=== PATIENT | male | born 1975 | race Caucasian/White ===

== ENCOUNTER 2018-03-22 22:52 | Emergency (ER) ==
[2018-03-22 23:06] VITALS: BP 162/89; TEMP 98.1; BMI 35.9
[2018-03-22] MEDS ORDERED: TORADOL IM STA (23:29)
[2018-03-22] MEDS ORDERED: AUGMENTIN 875-125 MG TAB PO STA (23:29)
--- NOTE | 2018-03-22 23:31 | ED.PDOC ---
General ED Provider: Dr. JESICA GALLARDO Chief Complaint: Tooth Problem Stated Complaint: Left lower and upper jaw pain and pressure Time Seen by Physician: 23:29 Mode of Arrival: Walk-In Information Source: Patient Primary Care Provider: DAMIAN MONDRAGON Nursing and Triage Documentation Reviewed and Agree: Yes Does patient meet sepsis criteria?: No If yes, has appropriate treatment been initiated?: No System Inflammatory Response Syndrome: Not Applicable Sepsis Protocol: For patient's 13 years and over: Temp is 96.8 and below OR 101 and greater Pulse >90 BPM Resp >20/minute Acutely Altered Mental Status Are patient's symptoms suggestive of a new infection, such as: -Pneumonia -Skin, Soft Tissue -Endocarditis -UTI -Bone, Joint Infection -Implantable Device -Acute Abdominal Infection -Wound Infection -Meningitis -Blood Stream Catheter Infection -Unknown EENT Complaint Exam - Dental/Oral Complaint/Exam Symptoms Are: Still present Timing: Constant Initial Severity: Moderate Current Severity: Moderate Character: Reports: Dull, Aching Aggravating: Reports: Heat, Cold, Chewing Alleviating: Reports: None Associated Signs and Symptoms: Reports: Swelling, Foul odor. Denies: Discharge , Fever, Foul taste in mouth Related History: Reports: Similar episode Cardiac Risk Factors: Reports: None Dental/Oral Surgical History: Reports: None Tooth Findings: Present: Percussion tenderness, Gross decay, Gross caries Cervical Lymphadenopathy Present: No Facial Swelling Present: No Bleeding Present: No Septal Hematoma: No Foreign Body Present: No Dysphagia Present: No Drooling Present: No Asymmetrical Tonsillar Swelling Present: No Uvula Midline: No Trini-tonsillar Fluctuence: No Trismus Present: No Palatal Petechiae Present: No Scarlatinaform Rash Present: No Teeth Picture: 1 - caries 2 - caries,tender Differential Diagnoses: Dental Abcess, Dental Caries Review of Systems - Review Of Systems Constitutional: Reports: No symptoms Eyes: Reports: No symptoms Ears, Nose, Mouth, Throat: Reports: Mouth pain, Mouth swelling Respiratory: Reports: No symptoms Cardiac: Reports: No symptoms GI: Reports: No symptoms : Reports: No symptoms Musculoskeletal: Reports: No symptoms Skin: Reports: No symptoms Neurological: Reports: No symptoms Endocrine: Reports: No symptoms Hematologic/Lymphatic: Reports: No symptoms All Other Systems: Reviewed and Negative Past Medical History - Past Medical History Previously Healthy: Yes Endocrine: Reports: None Cardiovascular: Reports: None Respiratory: Reports: None Hematological: Reports: None Gastrointestinal: Reports: None Genitourinary: Reports: None Neuro/Psych: Reports: None Musculoskeletal: Reports: None Cancer: Reports: None - Surgical History General Surgical History: Reports: None - Family History Family History: Reports: None - Social History Smoking Status: Current every day smoker, Heavy tobacco smoker Smoking Cessation Counseling Time: > 10 min Hx Substance Use: No Alcohol Screening: Occasionally - Immunizations Tetanus Shot up to Date: Yes Physical Exam - Physical Exam Appearance: Well-appearing, No pain distress, Well-nourished Eyes: BRANDEN, EOMI, Conjunctiva clear ENT: Ears normal, Nose normal, Oropharynx normal Respiratory: Airway patent, Breath sounds clear, Breath sounds equal, Respirations nonlabored Cardiovascular: RRR, Pulses normal, No rub, No murmur GI/: Soft, Nontender, No masses, Bowel sounds normal, No Organomegaly Musculoskeletal: Normal strength, ROM intact, No edema, No calf tenderness Skin: Warm, Dry, Normal color Neurological: Sensation intact, Motor intact, Reflexes intact, Cranial nerves intact, Alert, Oriented Psychiatric: Affect appropriate, Mood appropriate Critical Care Note - Critical Care Note Total Time (mins): 30 Course - Course Orders, Labs, Meds: Orders Category Date Time Status Amoxicillin/Potassium Clav [Augmentin 875-125 mg Tab] MEDS 03/22/18 23:29 Stat 1 tab PO ONCE STA Ketorolac Tromethamine [Toradol] MEDS 03/22/18 23:29 Stat 60 mg IM ONCE STA Vital Signs: Temp Pulse Resp BP Pulse Ox 03/22/18 22:53 98.1 F 84 20 162/89 H 97 Departure - Departure Time of Disposition: 23:31 Disposition: HOME SELF-CARE Discharge Problem: Toothache Instructions: Dental Abscess (ED) Condition: Stable Pt referred to PMD for follow-up: Yes IPMP verified?: No Prescriptions: Amoxicillin/Potassium Clav [Augmentin 500-125 mg Tab] 1 tab PO Q12HR #20 tablet Hydrocodone/Acetaminophen [Lutz 5-325 Tablet] 1 tab PO TID PRN #10 tablet PRN Reason: PAIN Allergies/Adverse Reactions: Allergies No Known Allergies Allergy (Verified 03/22/18 23:00) Home Medications: Ambulatory Orders Atorvastatin Calcium [Lipitor] 10 mg PO DAILY tab-cap 07/10/17 Dulaglutide [Trulicity] 1.5 mg SQ DIRECTED 07/10/17 Lisinopril 10 mg PO DAILY tab-cap 07/10/17 Metformin HCl [Glucophage] 500 mg PO BID tab-cap 07/10/17 Amoxicillin/Potassium Clav [Augmentin 500-125 mg Tab] 1 tab PO Q12HR #20 tablet 03/22/18 Hydrocodone/Acetaminophen [Lutz 5-325 Tablet] 1 tab PO TID PRN #10 tablet 03/22 Disposition Discussed With: Patient
== END 2018-03-22 23:55 | disposition home or self-care (01) ==
LOC: ED 22:52
DX: K04.7 Periapical abscess without sinus (principal); K02.7 Dental root caries; F17.210 Nicotine dependence, cigarettes, uncomplicated
CPT/HCPCS: 96372; 99282